=== PATIENT | male | born 1975 | race Caucasian/White ===

== ENCOUNTER 2017-04-08 13:17 | Emergency (ER) | payer MEDICAID ==
[2017-04-08 13:24] VITALS: RESP 16
[2017-04-08] MEDS ORDERED: IBUPROFEN 600 MG TAB PO ONE (13:31)
[2017-04-08] MEDS ORDERED: TDAP ADULT 0.5 ML INJ (BOOSTRIX) IM ONE (13:31)
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
[2017-04-08 15:12] VITALS: BP 125/66; PULSE 67; TEMP 98.4; O2SAT 99
== END 2017-04-08 15:11 | disposition home or self-care (01) ==
PROC: 0HQ1XZZ Repair Face Skin, External Approach (ICD-10-PCS; principal; 2017-04-08)
DX: S01.81XA Laceration without foreign body of other part of head, initial encounter (principal); Z23 Encounter for immunization; V18.2XXA Unspecified pedal cyclist injured in noncollision transport accident in nontraffic accident, initial encounter

== ENCOUNTER 2017-04-29 13:23 | Observation (INO) | payer MEDICAID ==
--- NOTE | 2017-04-29 14:34 | EDPHY ---
H & P Time Seen by Provider: 04/29/17 14:15 HPI/ROS: CHIEF COMPLAINT: Bloating, right-side abdominal pain HISTORY OF PRESENT ILLNESS: This patient is a 41 year old male complaining of right-sided abdominal pain and bloating onset yesterday morning. The night before, he had two slices of pizza and cider at [employer]. In the morning he felt tired, achy, and bloated. In the evening, his stomach felt worse - painfully bloated. He feels like he is full of water and air. He had trouble sleeping last night, and this morning felt the same. He tried famotidine and gas-x with no relief. He tried eating which pain felt worse. When he palpates his abdomen he notes increased pain on the right. He denies diarrhea, vomiting, chest pain, or other associated symptoms. REVIEW OF SYSTEMS: Constitutional: No fever, no chills Eyes: No visual changes ENT: No sore throat Respiratory: No cough, no shortness of breath Cardiac: No chest pain Gastrointestinal: No nausea, no vomiting, + abdominal pain Genitourinary: No hematuria, no dysuria Musculoskeletal: No leg pain or swelling Skin: No rash Neurological: No headache, no numbness, no weakness Psychiatric: No depression Past Medical/Surgical History: Denies Social History: Marijuana use. Occasional alcohol use. No tobacco use Smoking Status: Never smoked Physical Exam: General Appearance: Alert, no distress Eyes: Pupils equal and round, no conjunctival pallor or injection ENT, Mouth: Mucous membranes moist Neck: Normal inspection Respiratory: Lungs are clear to auscultation Cardiovascular: Regular rate and rhythm Gastrointestinal: Right lower quadrant tenderness. Abdomen is soft. Neurological: A&O, nonfocal, normal gait Skin: Warm and dry, no rash Extremities: Nontender, no pedal edema Psychiatric: Mood and affect normal Constitutional: Initial Vital Signs Temperature (C) 36.8 C 04/29/17 13:31 Heart Rate 76 04/29/17 13:31 Respiratory Rate 18 04/29/17 13:31 Blood Pressure 111/59 L 04/29/17 13:31 O2 Sat (%) 97 04/29/17 13:31 O2 Delivery Mode Room Air Allergies/Adverse Reactions: Penicillins Allergy (Verified 04/29/17 13:30) Home Medications: Medication Instructions Recorded Cholecalciferol Vit D3 [Vitamin D3 2,000 units PO HS 04/27/16 (*)] Famotidine [Pepcid 20 MG (*)] 20 mg PO BID 04/27/16 Cetirizine [ZyrTEC 10 mg (*)] 10 mg PO DAILY PRN 04/29/17 Fexofenadine HCl [Fara Allergy] 60 mg PO DAILY PRN 04/29/17 Herbals/Supplements -Info Only 1 ea PO DAILY 04/29/17 Ibuprofen [Motrin (*)] 800 mg PO DAILY PRN 04/29/17 Medical Decision Making - Diagnostics Imaging Results: CT abd/pelvis: appendicitis with surrounding free fluid, c/w ruptured appy Imaging: Discussed imaging studies w/ call out clerk Radiologist ED Course/Re-evaluation: 15:[address] Cosby, radiologist CT abdomen/pelvis positive for appendicitis. CT results d/w pt. Abd exam unchanged. Asked patient about his penicillin allergy - hand itchiness in the past. Plan to administer IV Ertapenem. 15:[address] Dodson, general surgeon. Care transferred to Dr. Dodson. Patient will be admitted for perioperative care. Differential Diagnosis: includes though not limited to SBO, abscess, UTI, renal colic - Data Points Laboratory Results: Laboratory Results 04/29/17 14:30 04/29/17 14:30 Medications Given: Discontinued Medications Bupivacaine HCl/Epinephrine Bitart (Bupivacaine/Epi) Confirm Administered Dose 30 ml .ROUTE .STK-MED ONE Stop: 04/29/17 18:38 Last Admin: 04/29/17 19:31 Dose: 20 ml Fentanyl (Sublimaze) 25 - 50 mcg IVP Q5M PRN PRN Reason: PACU, Immediate Moderate Pain Stop: 04/29/17 20:37 Last Admin: 04/29/17 20:21 Dose: 50 mcg Ertapenem 1 gm/ Sodium (Chloride) 100 mls @ 200 mls/hr IV EDNOW ONE PRN Reason: Protocol Stop: 04/29/17 16:20 Last Admin: 04/29/17 16:25 Dose: 100 mls Lactated Ringer's (Lr) 1,000 mls @ 0 mls/hr IV ONCE ONE PRN Reason: Per Protocol Stop: 04/29/17 17:40 Last Admin: 04/29/17 19:00 Dose: 1,000 mls Midazolam HCl (Versed) 1 mg IVP ONCALL ONE Stop: 04/29/17 18:42 Last Admin: 04/29/17 19:02 Dose: 1 mg Morphine Sulfate (Morphine) 6 mg IVP EDNOW ONE Stop: 04/29/17 15:45 Last Admin: 04/29/17 15:48 Dose: 6 mg Ondansetron HCl (Zofran) 4 mg IVP EDNOW ONE Stop: 04/29/17 15:45 Last Admin: 04/29/17 15:48 Dose: 4 mg Ondansetron HCl (Zofran) 2 - 4 mg IVP Q10M PRN PRN Reason: PACU, Nausea/Vomiting Stop: 04/29/17 20:37 Last Admin: 04/29/17 20:21 Dose: 4 mg Departure - Departure Disposition: [facility] Inpatient Acute Clinical Impression: Acute appendicitis Qualifiers: Acute appendicitis type: unspecified acute appendicitis type Qualified Code(s) : K35.80 - Unspecified acute appendicitis Condition: Good Report Scribed for: Cassidy Miller Report Scribed by: Belen Kennedy Date of Report: 04/29/17 Time of Report: 14:29 Physician Review and Approval Statement: 04/29/17 14:28 Portions of this note were transcribed by a medical administrative specialist. I personally performed a history, physical exam, medical decision making, and confirmed accuracy of information the transcribed note.
[2017-04-29 14:52] LABS: ALANINE AMINOTRANSFERASE 75 IU/L (21-72); ALBUMIN 4.4 g/dL (3.5-5.0); ALKALINE PHOSPHATASE 46 IU/L (38-126); ANION GAP 11 mEq/L (8-16); ASPARTATE AMINOTRANSFERASE 34 IU/L (17-59); BILIRUBIN,TOTAL 0.9 mg/dL (0.1-1.4); BILIRUBIN-CONJUGATED 0.2 mg/dL (0.0-0.5); BILIRUBIN-UNCONJUGATED 0.7 mg/dL (0.0-1.1); CARBON DIOXIDE 28 mEq/l (22-31); CHLORIDE 100 mEq/L (97-110); GLOMERULAR FILTRATION RATE > 60; GLUCOSE 87 mg/dL (70-100); SODIUM 139 mEq/L (134-144); TOTAL PROTEIN 7.5 g/dL (6.3-8.2)
[2017-04-29 14:57] LABS: % IMMATURE GRANULYOCYTES 0.2 % (0.0-1.1); ABSOLUTE IMMATURE GRANULOCYTES 0.03 10^3/uL (0.00-0.10); ADD DIFF? NO; ADD MORPH? NO; ADD SCAN? NO; ATYPICAL LYMPHOCYTE FLAG 10 (0-99); FRAGMENT RBC FLAG 0 (0-99); HEMATOCRIT 45.3 % (40.0-51.0); HEMOGLOBIN 15.2 g/dL (13.7-17.5); LEFT SHIFT FLG 0 (0-99); LIPEMIA HEMOLYSIS FLAG 80 (0-99); MEAN CELL HEMOGLOBIN 28.9 pg (27.9-34.1); MEAN CELL HEMOGLOBIN CONCENTR. 33.6 g/dL (32.4-36.7); MEAN CELL VOLUME 86.1 fL (81.5-99.8); MEAN PLATELET VOLUME 9.2 fL (8.7-11.7); PLATELET CLUMPS FLAG 0 (0-99); PLATELET COUNT 215 10^3/uL (150-400); RED BLOOD CELL COUNT 5.26 10^6/uL (4.40-6.38)
[2017-04-29] MEDS ORDERED: IOPAMIDOL (ISOVUE-300) 100 ML BTL ONE (15:12)
[2017-04-29] MEDS ORDERED: ONDANSETRON 4 MG/2 ML VIAL IVP ONE (15:44)
[2017-04-29] MEDS ORDERED: ERTAPENEM 1 GM in NS 100 ML IV ONE (15:51)
[2017-04-29] MEDS ORDERED: LR 1,000 ML IV ONE (17:39)
[2017-04-29] MEDS ORDERED: BUPIVACAINE/EPI 0.5% 30 ML SDV ONE (18:37)
[2017-04-29] MEDS ORDERED: MIDAZOLAM 2 MG/2 ML VIAL IVP ONE (18:41)
--- NOTE | 2017-04-29 18:43 | PDANEPAE ---
ANE History of Present Illness Patient presents for Lap Manuel OSCAR Past Medical History - Cardiovascular History Hx Hypertension: No - Pulmonary History Hx Oxygen in Use at Home: No Hx Sleep Apnea: No - Endocrine History Hx Diabetes: No - Chronic Pain History Chronic Pain: Yes ANE Review of Systems - Exercise capacity Exercise capacity: >=4 METS ANE Patient History - Allergies Allergies/Adverse Reactions: Penicillins Allergy (Verified 04/29/17 13:30) - Home Medications Home medications: home medication list seen and reviewed Home Medications: Cholecalciferol Vit D3 [Vitamin D3 (*)] 2,000 units PO HS 04/27/16 [Last Taken 04/28/17] Famotidine [Pepcid 20 MG (*)] 20 mg PO BID 04/27/16 [Last Taken 04/28/17] Cetirizine [ZyrTEC 10 mg (*)] 10 mg PO DAILY PRN 04/29/17 [Last Taken 3 Days Ago ] Fexofenadine HCl [Fara Allergy] 60 mg PO DAILY PRN 04/29/17 [Last Taken Unknown] Herbals/Supplements -Info Only 1 ea PO DAILY 04/29/17 [Last Taken 04/27/17] Ibuprofen [Motrin (*)] 800 mg PO DAILY PRN 04/29/17 [Last Taken 3 Days Ago] - NPO status NPO Status: no food or drink >8 hours NPO Since - Liquids (Date): 04/29/17 NPO Since - Liquids (Time): 10:00 NPO Since - Solids (Date): 04/29/17 NPO Since - Solids (Time): 10:00 - Anes Hx Anes Hx: no prior problems - Smoking Hx Smoking Status: Never smoked ANE Labs/Vital Signs - Labs Result Diagrams: 04/29/17 14:30 04/29/17 14:30 - Vital Signs Vital Signs: reviewed preoperatively; see RN documention for details Blood Pressure: 123/71 Heart Rate: 72 Respiratory Rate: 16 O2 Sat (%): 94 Height: 203.2 cm Weight: 90.718 kg ANE Physical Exam - Airway Neck exam: decreased ROM Mallampati Score: Class 1 Mouth exam: normal dental/mouth exam - Pulmonary Pulmonary: no respiratory distress - Cardiovascular Cardiovascular: regular rate and rhythym - ASA Status ASA Status: I, E ANE Anesthesia Plan Anesthesia Plan: general endotracheal anesthesia (RBA discussed, patient agrees to proceed)
[2017-04-29] MEDS ORDERED: PROPOFOL 200 MG/20 ML VIAL ONE (18:47)
[2017-04-29] MEDS ORDERED: fentaNYL 100 MCG/2 ML INJ ONE ×3 (18:47→20:19)
[2017-04-29] MEDS ORDERED: SUCCINYLCHOLINE CHLORIDE*ANESTHESIA ONLY*200 MG/10 ML SYR IVP ONE ×2 (18:51→19:24)
[2017-04-29] MEDS ORDERED: ROCURONIUM 50 MG/5 ML VIAL ONE (19:23)
[2017-04-29] MEDS ORDERED: LIDOCAINE 2% 5 ML SDV ONE (19:23)
[2017-04-29] MEDS ORDERED: ONDANSETRON 4 MG/2 ML VIAL ONE ×2 (19:32→20:19)
[2017-04-29] MEDS ORDERED: DEXAMETHASONE 4 MG/ML VIAL ONE (19:32)
[2017-04-29] MEDS ORDERED: SUGAMMADEX SODIUM 200 MG/2 ML VIAL IVP ONE (19:32)
[2017-04-29] MEDS ORDERED: NALOXONE HCL 0.4 MG/ML INJ IVP PRN (19:37)
[2017-04-29] MEDS ORDERED: fentaNYL 100 MCG/2 ML INJ IVP PRN (19:37)
[2017-04-29] MEDS ORDERED: LR 500 ML IV PRN (19:37)
[2017-04-29] MEDS ORDERED: OXYCODONE/APAP 5/325 TAB PO PRN (19:37)
[2017-04-29] MEDS ORDERED: HYDROCODONE/APAP 5/325 TAB PO PRN (19:37)
[2017-04-29] MEDS ORDERED: ONDANSETRON 4 MG/2 ML VIAL IVP PRN (19:37)
[2017-04-29] MEDS ORDERED: KETOROLAC 30 MG/1 ML SDV ONE (19:39)
--- NOTE | 2017-04-29 20:09 | POSTOPPROG ---
Post Op Note Date of Operation: 04/29/17 Surgeon: Nixon Dodson Anesthesia: GET(General Endotracheal) Pre-op Diagnosis: acute appendicitis Post-op Diagnosis: same Indication: acute appy Procedure: laparoscopic appendectomy Findings: same Inf/Abcess present in the surg proc area at time of surgery?: No EBL: Minimal Complications: none
[2017-04-29 20:18] VITALS: RESP 16
--- NOTE | 2017-04-29 20:22 | GOP ---
[f rep st] OPERATIVE REPORT DATE OF OPERATION: SURGEON: Nixon Dodson MD PREOPERATIVE DIAGNOSIS: Acute appendicitis. POSTOPERATIVE DIAGNOSIS: Acute appendicitis. PROCEDURE PERFORMED: Laparoscopic appendectomy. FINDINGS: INDICATIONS: A 41-year-old male with clinical picture of acute appendicitis. Positive CT scan. DESCRIPTION OF PROCEDURE: General anesthetic. The abdomen was scrubbed with ChloraPrep, draped in usual sterile fashion. Infraumbilical incision made. Veress needle used to achieve a pneumoperiton eum. A 12 mm trocar placed and eventually two other 5 mm ports. The appendix was stuck in the right gutter. It was bluntly mobilized and then the mesoappendix harvested with a Harmonic scalpel. Whe n the base of the appendix joining the cecum was identified, it was amputated flush on the cecum wit h an Endo-TRICIA 30 blue cartridge. The appendix was placed in an Endopouch and extracted from the fasc ial defect at the umbilicus. There was no bleeding. Gas was vented from the abdomen. Incisions cl osed with 0 Vicryl at the umbilical fascia and 4-0 Vicryl on the skin with Dermabond. The patient to lerated the procedure well. /[id number]/MODL
[2017-04-29 20:48] VITALS: BP 132/73; PULSE 75; TEMP 98.1; O2SAT 94
== END 2017-04-29 21:40 | disposition home or self-care (01) ==
LOC: F3E 20:40
PROVIDERS: ADMIT Surgery; ATTEND Surgery
PROC: 0DT Gastrointestinal System, Resection (ICD-10-PCS; principal; 2017-04-29 18:15)
DX: K35.80 Unspecified acute appendicitis (principal); Z88.0 Allergy status to penicillin
CPT/HCPCS: 96374; J0330; J1100; J1335; J1885; J2250; J2405; J2704; J3010; Q9967